=== PATIENT | male | born 1995 | race Caucasian/White ===

== ENCOUNTER 2018-03-22 09:56 | Emergency (ER) | payer MEDICAID ==
[~2018-03-22 09:56] MED LIST: LOPERAMIDE HCL 2 MG CAP PO SCH
[2018-03-22] MEDS ORDERED: NS 1,000 ML IV ONE ×2 (10:19→13:27)
--- NOTE | 2018-03-22 10:24 | EDPHY ---
H & P Stated Complaint: diarrhea Time Seen by Provider: 03/22/18 10:06 HPI/ROS: CHIEF COMPLAINT: Diarrhea HISTORY OF PRESENT ILLNESS: This is a 22-year-old undomiciled male who is reportedly on his way from [place] to [place]. However, he comes to the emergency room by ambulance this morning after developing diarrhea in the early hours of the morning. He reports about 10 nonbloody diarrheal stools this morning. He has diffuse crampy abdominal pain, somewhat worse on the right than on the left. He reports nausea but no vomiting. He has not been aware of fever. Has a history of methamphetamine abuse but has not used for the past 2 weeks. He states that he is moving so that he can get away from drug use. He has family in [place], [place]. He also mentions nasal congestion and occasional mucus drainage. No sore throat. No cough. Not short of breath. REVIEW OF SYSTEMS: A ten system review of systems was performed and is negative with the exception of the items mentioned in the HPI. Past medical history: Leg pain related to traumatic injury Past surgical history: Crush injury to the right leg Social history: Undomiciled. He smokes 1/2 pack of cigarettes a day. No alcohol use. History of methamphetamine abuse with no methamphetamine use for the past 2 weeks. General Appearance: Alert. Vital signs reviewed. Poor personal hygiene. Blood pressure 156/98, heart rate 105. Eyes: Pupils equal and round, no conjunctival injection, no discharge. Anicteric. ENT, Mouth: Mucous membranes are moist, no oropharyngeal erythema or edema. Neck: No lymphadenopathy, supple. Respiratory: Lungs are clear to auscultation; no wheezes, rales, or rhonchi. Cardiovascular: Regular rate and rhythm; no murmur, rub, or gallop. Gastrointestinal: Abdomen is soft with mild diffuse tenderness, slightly worse in the right upper quadrant, no guarding; no masses or organomegaly, bowel sounds normal. Skin: Warm and dry, no rashes on exposed skin, normal color. Back: Nontender to palpation over the thoracolumbar spine. No CVAT. Extremities: No lower extremity edema, no calf tenderness or swelling. Neurological: Alert and oriented. Moving all four extremities easily and equally. Psychiatric: Normal affect. - Personal History Current Tetanus Diphtheria and Acellular Pertussis (TDAP): Unsure - Medical/Surgical History Hx Asthma: No Hx Chronic Respiratory Disease: No Hx Diabetes: No Hx Cardiac Disease: No Hx Renal Disease: No Hx Cirrhosis: No Hx Alcoholism: No Hx HIV/AIDS: No Hx Splenectomy or Spleen Trauma: No Other PMH: meth use - Social History Smoking Status: Current every day smoker Constitutional: Initial Vital Signs Temperature (C) 36.8 C 03/22/18 10:09 Heart Rate 105 H 03/22/18 10:09 Respiratory Rate 16 03/22/18 10:09 Blood Pressure 156/98 H 03/22/18 10:09 O2 Sat (%) 94 03/22/18 10:09 O2 Delivery Mode Room Air Allergies/Adverse Reactions: Sulfa (Sulfonamide Antibiotics) Allergy (Verified 03/22/18 10:50) [email or web address] Allergy (Uncoded 03/22/18 10:51) Home Medications: Medication Instructions Recorded Loperamide HCl [Imodium 2 mg (*)] 2 mg PO PRN PRN #10 cap 03/22/18 Medical Decision Making ED Course/Re-evaluation: Patient serially re-evaluated. I reviewed his laboratory studies. White blood cell count is elevated at 15.9. Platelets 493. Electrolytes normal. Kidney function normal. He has not been febrile in the department. At 1:25 p.m., upon re-evaluation, he tells me that he has had 6 more diarrheal stools. No organisms found on GI panel. Will try Lomotil to see if we can slow this down and will continue with IV fluids. Re-evaluated at 2:25 p.m.. He tells me that the diarrhea has slowed. 2nd L of IV fluid normal saline infusing. He has no nausea or vomiting. His abdomen remains soft. Will try p.o.. Hopefully he will be able to go to [facility]. He was observed for almost 6 hr in the emergency department. Towards the end of his stay his diarrhea abated. He is given Imodium to use if needed. No bacteria, viruses, or parasites detected on the GI pathogen panel. He has no history of chronic diarrhea and I do not suspect Crohn's disease. He has not had nausea or vomiting, this is not a gastroenteritis. - Data Points Laboratory Results: Laboratory Results 03/22/18 10:40 03/22/18 10:40 Microbiology Results: MICROBIOLOGY 03/22/18 11:20 Stool Gastrointestinal Tract Panel (PCR) - Final No Organism Detected By Pcr Medications Given: Discontinued Medications Diphenoxylate HCl/Atropine (Lomotil) 1 tab PO ONCE ONE Stop: 03/22/18 13:28 Last Admin: 03/22/18 14:06 Dose: 1 tab Sodium Chloride (Ns) 1,000 mls @ 0 mls/hr IV EDNOW ONE; Wide Open PRN Reason: Protocol Stop: 03/22/18 10:20 Last Admin: 03/22/18 10:35 Dose: 1,000 mls Sodium Chloride (Ns) 1,000 mls @ 0 mls/hr IV EDNOW ONE; Wide Open PRN Reason: Protocol Stop: 03/22/18 13:28 Last Admin: 03/22/18 13:39 Dose: 1,000 mls Departure - Departure Disposition: Home, Routine, Self-Care Clinical Impression: Diarrhea Qualifiers: Diarrhea type: unspecified type Qualified Code(s): R19.7 - Diarrhea, unspecified Condition: Good Instructions: Loperamide (By mouth), Acute Diarrhea (ED) Additional Instructions: [facility] to [facility]. Take the loperamide as instructed. Referrals: [facility] [Outside] - As per Instructions Prescriptions: Loperamide HCl [Imodium 2 mg (*)] 2 mg PO PRN PRN #10 cap PRN Reason: Diarrhea/Loose Stools
[2018-03-22 10:53] LABS: PLATELET COUNT 481 10^3/uL (150-400)
[2018-03-22] MEDS ORDERED: DIPHENOXYLATE/ATROPINE LOMOTIL 1 TAB PO ONE (13:27)
[2018-03-22 16:25] VITALS: BP 128/78
--- NOTE | 2018-03-22 19:50 | ASMTCMCOM ---
CM Note CM Note Notes: Pt presented to the ED via EMS for diarrhea and abdominal pain. Pt is homeless and this is his 2nd day in [place]. Pt states he has been in [place] for the past 9 months. Pt states he is from [place] and on his way to [place] where he has several family members. Pt states his next stop on the way to is [place]. Pt is very unkempt and had been incontinent of stool multiple times in his coveralls. Pt needs to shower and do laundry. This CM reserved a bed at [facility] for the pt tonight only and he knows he needs to complete [facility] tomorrow. Pt provided information on local homelessness resources including [facility], [facility], [facility], [facility], etc. Pt states he was able to quit using meth about 2 months ago and denies drinking ETOH or using any other drugs. Pt states he does not have any money to purchase Imodium over the counter. This CM tried to fill pt's Imodium Rxn at [facility] but pt's Medicaid is currently only able to authorize Rxns at [facility] so this CM filled his Rxn through our MAP. Pt provided a [place] cab to the [facility] area. Pt also provided a pair of sweatpants and socks. Pt very pleasant & appreciative. CM available for further assistance if needed. Date Signed: 03/22/2018 07:49 PM Electronically Signed By:Amanda Navarro RN
== END 2018-03-22 16:25 | disposition home or self-care (01) ==
DX: R19.7 Diarrhea, unspecified (principal); E86.9 Volume depletion, unspecified

== ENCOUNTER 2018-03-23 10:46 | Emergency (ER) | payer MEDICAID ==
--- NOTE | 2018-03-23 10:47 | EDPHY ---
HPI/HX/ROS/PE/MDM Narrative: CHIEF COMPLAINT: Abdominal pain, diarrhea HPI: The patient is a homeless 22 y/o male with a history of bipolar disorder and methamphetamine abuse who returns to the ED for the second time in 24 hours complaining of diffuse abdominal pain and persistent diarrhea. His pain is diffuse and at times feels like "something is stabbing me from the inside." He was evaluated here yesterday during a 6-hour stay for the same symptoms and treated with fluids and Lomotil. A GI pathogen panel was negative. Case management arranged a bed at the homeless detention, provided homelessness resources, given clothing, was provided Imodium for ongoing symptoms, and had transport arranged to the detention. He returns this morning with similar symptoms and more severe abdominal pain. REVIEW OF SYSTEMS: A comprehensive 10 system review of systems is otherwise negative aside from elements mentioned in the history of present illness. PMH: Bipolar disorder, depression, anxiety, methamphetamine abuse (none in last two weeks per patient) SOCIAL HISTORY: Homeless, reportedly traveling to [facility] where his family is located. Prior medical records reviewed including ED visit yesterday 03/22/18 for the same symptoms. PHYSICAL EXAM: General:Patient is alert, in no acute distress. Disheveled. ENT:Eyes are normal to inspection. ENT inspection normal. Neck: Normal inspection. Full range of motion. Respiratory:No respiratory distress. Breath sounds normal bilaterally. Cardiovascular: Regular rate and rhythm. Strong peripheral pulses. Normal cap refill. Abdomen:The abdomen has LLQ tenderness to palpation. There are no peritoneal signs. Back: Normal to inspection. No tenderness to palpation. Skin: Normal color. No rash. Warm and dry. Extremities: Normal appearance. Full range of motion. Neuro: Oriented x3. Normal motor function. Normal sensory function. ED Course: This is a 22 y/o male who returns to the ED with ongoing diarrhea and abdominal pain for the last day. He has LLQ tenderness on exam. Plan for IV, labs, abdominal CT. 1L IV NS ordered. CT shows signs of enteritis. Reassessed patient and discussed findings. Recommended continuing Imodium treatment and following up with PCP as previously directed yesterday. Return precautions discussed. - Data Points Imaging: Discussed imaging studies w/ yard caller Radiologist, I viewed and interpreted images myself Laboratory Results: Laboratory Results 03/23/18 11:10 03/23/18 11:10 03/23/18 03/23/18 11:10 11:10 WBC 14.96 10^3/uL H 10^3/uL (3.80-9.50) RBC 4.91 10^6/uL 10^6/uL (4.40-6.38) Hgb 14.2 g/dL g/dL (13.7-17.5) Hct 43.7 % % (40.0-51.0) MCV 89.0 fL fL (81.5-99.8) MCH 28.9 pg pg (27.9-34.1) MCHC 32.5 g/dL g/dL (32.4-36.7) RDW 14.6 % % (11.5-15.2) Plt Count 420 10^3/uL H 10^3/uL (150-400) MPV 9.2 fL fL (8.7-11.7) Neut % (Auto) 77.9 % H % (39.3-74.2) Lymph % (Auto) 14.6 % L % (15.0-45.0) [place] % (Auto) 5.4 % % (4.5-13.0) Eos % (Auto) 1.3 % % (0.6-7.6) Baso % (Auto) 0.3 % % (0.3-1.7) Nucleat RBC Rel Count 0.0 % % (0.0-0.2) Absolute Neuts (auto) 11.65 10^3/uL H 10^3/uL (1.70-6.50) Absolute Lymphs (auto) 2.19 10^3/uL 10^3/uL (1.00-3.00) Absolute Monos (auto) 0.81 10^3/uL H 10^3/uL (0.30-0.80) Absolute Eos (auto) 0.19 10^3/uL 10^3/uL (0.03-0.40) Absolute Basos (auto) 0.04 10^3/uL 10^3/uL (0.02-0.10) Absolute Nucleated RBC 0.00 10^3/uL 10^3/uL (0-0.01) Immature Gran % 0.5 % % (0.0-1.1) Immature Gran # 0.08 10^3/uL 10^3/uL (0.00-0.10) Sodium 136 mEq/L mEq/L (135-145) Potassium 4.5 mEq/L mEq/L (3.5-5.2) Chloride 105 mEq/L mEq/L (97-110) Carbon Dioxide 23 mEq/l mEq/l (22-31) Anion Gap 8 mEq/L mEq/L (6-14) BUN 13 mg/dL mg/dL (7-23) Creatinine 0.6 mg/dL L mg/dL (0.7-1.3) Estimated GFR > 60 Glucose 81 mg/dL mg/dL (70-100) Calcium 9.8 mg/dL mg/dL (8.5-10.4) Medications Given: Discontinued Medications Sodium Chloride (Ns) 1,000 mls @ 0 mls/hr IV EDNOW ONE; Wide Open PRN Reason: Protocol Stop: 03/23/18 10:56 Last Admin: 03/23/18 11:20 Dose: 1,000 mls General Time Seen by Provider: 03/23/18 10:46 Initial Vital Signs: Initial Vital Signs Temperature (C) 36.5 C 03/23/18 10:49 Heart Rate 83 03/23/18 10:49 Respiratory Rate 18 03/23/18 10:49 Blood Pressure 116/78 03/23/18 10:49 O2 Sat (%) 98 03/23/18 10:49 O2 Delivery Mode Room Air Allergies/Adverse Reactions: Sulfa (Sulfonamide Antibiotics) Allergy (Verified 03/23/18 10:49) jalapeno Allergy (Uncoded 03/22/18 10:51) Home Medications: Medication Instructions Recorded Loperamide HCl [Imodium 2 mg (*)] 2 mg PO PRN PRN #10 cap 03/22/18 Departure - Departure Disposition: Home, Routine, Self-Care Clinical Impression: Enteritis Condition: Good Instructions: Loperamide (By mouth), Enteritis (ED) Additional Instructions: Continue Imodium treatment as directed yesterday. Practice frequent hand washing to help prevent spread of infection to others. Follow up with your primary care provider as needed. Return to the ED for worsening of condition. Referrals: [facility],. [Clinic] - As per Instructions Report Scribed for: Balaji Reese Report Scribed by: Lupe Caputo Date of Report: 03/23/18 Time of Report: 10:56 Physician Review and Approval Statement: Portions of this note were transcribed by an ED scribe. I personally performed the history, physical exam, and medical decision making; and confirm the accuracy of the information in the transcribed note.
[2018-03-23] MEDS ORDERED: NS 1,000 ML IV ONE (10:55)
[2018-03-23 11:24] LABS: PLATELET COUNT 420 10^3/uL (150-400)
[2018-03-23] MEDS ORDERED: IOPAMIDOL (ISOVUE-300) 100 ML BTL ONE (12:02)
[2018-03-23 13:12] VITALS: BP 126/73
== END 2018-03-23 13:11 | disposition home or self-care (01) ==
LOC: EDUNIT#
DX: K52.9 Noninfective gastroenteritis and colitis, unspecified (principal); E86.9 Volume depletion, unspecified; Z59.0 Homelessness
CPT/HCPCS: Q9967